=== PATIENT | male | born 1985 | race Caucasian/White ===

== ENCOUNTER 2022-01-20 17:43 | Inpatient (IN) | payer OTHER ==
[~2022-01-20] VITALS: Ht 182.9 cm; Wt 113.4 kg
[2022-01-20 18:17] LABS: HEMOGLOBIN 15.8 gm/dl (14.0-17.5); WHITE BLOOD COUNT 7.5 K/UL (4.5-11.0)
[2022-01-20 18:47] LABS: BUN/CREATININE RATIO 11 (0-10)
[2022-01-21 06:52] LABS: HEMOGLOBIN 14.8 gm/dl (14.0-17.5); RED BLOOD COUNT 4.67 M/UL (4.20-5.50); WHITE BLOOD COUNT 7.2 K/UL (4.5-11.0)
[2022-01-21 07:32] LABS: BUN/CREATININE RATIO 9 (0-10)
[2022-01-22 06:45] LABS: HEMOGLOBIN 14.4 gm/dl (14.0-17.5); RED BLOOD COUNT 4.68 M/UL (4.20-5.50)
[2022-01-22 06:50] LABS: BUN/CREATININE RATIO 9 (0-10)
[2022-01-23] MEDS ORDERED: PHENERGAN 25 MG25 M1 PO (16:44)
[2022-01-23] MEDS ORDERED: HYDROCODON-ACE1 EAC2 PO (16:44)
[2022-01-23] MEDS ORDERED: PEPCID40 MG PO (16:44)
[2022-01-25 11:12] LABS: HBSAG SCREEN Negative (Negative); HEP B CORE AB, TOT Negative (Negative); HEP C VIRUS AB <0.1 (0.0-0.9)
== END 2022-01-23 17:27 | disposition home or self-care (01) | DRG 419 ==
LOC: ER1 17:43 → MED SURG 4 21:26 → CDU 21:26 → MED SURG 4 01-21 00:10
PROVIDERS: Internal Medicine Infectious Disease; Physician Assistant; Surgery; ADMIT Internal Medicine
PROC: 0FT44ZZ Resection of Gallbladder, Percutaneous Endoscopic Approach (ICD-10-PCS; principal; 2022-01-23 11:30)
DX: K85.10 Biliary acute pancreatitis without necrosis or infection (principal); R74.01 Elevation of levels of liver transaminase levels; E66.01 Morbid (severe) obesity due to excess calories; K21.9 Gastro-esophageal reflux disease without esophagitis; Z20.822 Contact with and (suspected) exposure to COVID-19; F17.220 Nicotine dependence, chewing tobacco, uncomplicated; Z72.89 Other problems related to lifestyle; Z90.49 Acquired absence of other specified parts of digestive tract; Z88.1 Allergy status to other antibiotic agents; Z68.33 Body mass index [BMI] 33.0-33.9, adult
CPT/HCPCS: 36415; 74181; 76705; 80053; 81001; 83690; 84478; 85025; 86704; 86706; 86708; 86803; 87340; 96374; 96375; 99285; C9113; G0378; J1100; J1170; J1885; J2001; J2250; J2270; J2405; J2704; J3010; J7030; J7120; Q9967; U0002